=== PATIENT | female | born 1960 | race Caucasian/White ===

== ENCOUNTER 2018-01-02 09:54 | Emergency (ER) | payer BC ==
[2018-01-02] MEDS ORDERED: Tetan/Diph/Pertus SYR(Tdap)* 0.5 ML SYR(BOOSTRIX) use SYR IM ONE (10:49)
--- NOTE | 2018-01-02 11:35 | ED ---
Lower Extremity - HPI Summary HPI Summary: Pt presents w/ Rt daugherty laceration around 8:15am today when she was taking out the garbage. Pulled the bag out of the can and a piece of glass cut her daugherty. Bleeding controlled. Denies numbness, tingling, weakness and no pain. Imms are not UTD. Pt did not clean wound prior to arrival - no concern for FB. She is bearing weight w/o difficulty. - History of Current Complaint Chief Complaint: EDLacSutureRecheck Stated Complaint: RT LEG LAC Time Seen by Provider: 01/02/18 10:49 Hx Obtained From: Patient Pain Intensity: 0 - Allergies/Home Medications Allergies/Adverse Reactions: Allergies Allergy/AdvReac Type Severity Reaction Status Date / Time No Known Allergies Allergy Verified 01/02/18 10:16 Home Medications: Home Medications NK [No Home Medications Reported] 01/02/18 [History Confirmed 01/02/18] PMH/Surg Hx/FS Hx/Imm Hx Previously Healthy: Yes Endocrine/Hematology History: Denies: Hx Anticoagulant Therapy, Hx Blood Disorders, Hx Diabetes, Autoimmune Disease - Immunization History Immunizations Up to Date: No Infectious Disease History: No Infectious Disease History: Denies: Hx of Known/Suspected MRSA, Traveled Outside the [place] in Last 30 Days - Family History Known Family History: Positive: None - Social History Lives: With Family Alcohol Use: Rare Hx Substance Use: No Substance Use Type: Reports: None Hx Tobacco Use: No Smoking Status (MU): Never Smoked Tobacco Review of Systems Positive: no symptoms reported Musculoskeletal: Negative Skin: Other - lac Neurological: Negative Psychological: Normal All Other Systems Reviewed And Are Negative: Yes Physical Exam Triage Information Reviewed: Yes Vital Signs On Initial Exam: Initial Vitals Temp Pulse Resp BP Pulse Ox 97.5 F 83 16 136/96 97 01/02/18 10:13 01/02/18 10:13 01/02/18 10:13 01/02/18 10:13 01/02/18 10:13 Vital Signs Reviewed: Yes Appearance: Positive: Well-Appearing, No Pain Distress, Well-Nourished Skin: Positive: Warm, Skin Color Reflects Adequate Perfusion - Rt anterior tibia w/ 6cm x 5mm widex 3mm deep - clean Head/Face: Positive: Normal Head/Face Inspection Eyes: Positive: EOMI ENT: Positive: Hearing grossly normal, Pharynx normal - mucosa moist Respiratory/Lung Sounds: Positive: Breath Sounds Present Cardiovascular: Positive: Pulses are Symmetrical in both Upper and Lower Extremities Musculoskeletal: Positive: Normal, Strength/ROM Intact Neurological: Positive: Normal, Sensory/Motor Intact, Alert, Oriented to Person Place, Time Psychiatric: Positive: Normal - concerned but polite, cooperative Procedures - Laceration/Wound Repair 1 Location: lower extremity Description: Linear Anesthesia: Local, Lido, Bicarb Betadine Prep?: Yes Laceration/Wound Explored: clean Closure: Single Layer Suture Type: Nylon Layer Closure?: No Sterile Dressing Applied?: Yes - triple anbx ointment + gauze - hemodynamically stable Diagnostics - Vital Signs Vital Signs Temp Pulse Resp BP Pulse Ox 01/02/18 10:13 97.5 F 83 16 136/96 97 - Laboratory Lab Statement: Any lab studies that have been ordered have been reviewed, and results considered in the medical decision making process. Lower Extremity Course/Dx - Course Course Of Treatment: Lac repaired by TERESSA Churchill - observed by Josephine Lima PA-C. - Diagnoses Provider Diagnoses: Laceration of right lower leg Discharge - Sign-Out/Discharge Documenting (check all that apply): Patient Departure - Discharge Plan Condition: Stable Disposition: HOME Patient Education Materials: Care For Your Stitches (ED), Laceration (ED) Referrals: [facility] [place] [facility] [Outside] Additional Instructions: Keep Dressing clean and dry and in place for the next 48 hours. After that time you may remove dressing, gently wash wound with soap and water, rinse well and pat dry with clean cloth. Reapply triple antibiotic ointment and clean gauze dressing. Continue this daily until sutures are removed. Call your PCP to schedule wound recheck and suture removal in 10-14 days. If you do not have a PCP, a referral number has been provided for you today. For pain and swelling, you may rest, ice, elevate and take ibuprofen with food as needed * If you develop redness, swelling, streaking, purulent drainage, fevers or chills, seek medical attention sooner or return to the emergency department. - Billing Disposition and Condition Condition: STABLE Disposition: Home
[2018-01-02] MEDS ORDERED: Sodium Bicarbonate 8.4% SYR* 10 ML SYRINGE IV ONE (11:47)
[2018-01-02] MEDS ORDERED: Lidocaine 1%* 5 ML VIAL ONE (12:47)
[2018-01-02] MEDS ORDERED: Lidocaine 1% INJ* 10 MG/ML 30 ML SDV ONE (12:49)
[2018-01-02 14:20] VITALS: BP 148/108
== END 2018-01-02 14:14 | disposition home or self-care (01) ==
LOC: ED 09:54
DX: S81.811A Laceration without foreign body, right lower leg, initial encounter (principal); W25.XXXA Contact with sharp glass, initial encounter; Y92.9 Unspecified place or not applicable
CPT/HCPCS: 90471; 90715; 99281